=== PATIENT | female | born 1990 | race Caucasian/White ===

== ENCOUNTER 2023-11-30 17:01 | Emergency (ER) | payer OTHER, SELFPAY ==
[2023-11-30 17:04] VITALS: BP 177/81; PULSE 93; RESP 16; TEMP 36.5; O2SAT 100; BMI 29.2
--- NOTE | 2023-11-30 17:22 | DI.CT.S_ITS ---
PROCEDURE: CT CERVICAL SPINE WO CON INDICATIONS: midline cervical pain after fall TECHNIQUE: Noncontrast 3 mm thick sections acquired from the skull base to the T4 level. Sagittal and coronal reformats were then constructed. For radiation dose reduction, the following was used: automated exposure control, adjustment of mA and/or kV according to patient size. COMPARISON: None. FINDINGS: Image quality: This examination is somewhat limited by quantum mottle artifact. Bones: No fractures or dislocations. Visualized superior ribs are intact. Soft tissues: Prevertebral soft tissues are normal in thickness. No paravertebral hematomas. No apical pneumothoraces. IMPRESSION: No displaced fracture or traumatic subluxation. Dictated by: Karan Montgomery M.D. on 11/30/2023 at 16:37 Approved by: Karan Montgomery M.D. on 11/30/2023 at 16:38
--- NOTE | 2023-11-30 18:02 | ED_ITS ---
HPI - Neck Pain/Injury General Chief Complaint: Neck Pain/Injury Stated Complaint: FALL, NECK PAIN Time Seen by Provider: 11/30/23 17:21 Mode of arrival: Ambulatory History of Present Illness HPI Narrative: Patient is a 33-year-old female significant past medical history presenting today with neck pain. She reports that she fell down about 10 flights of stairs 1 week ago. She has since had sharp shooting pain down her right arm she dropped her coffee this morning. She has taken some Tylenol without significant relief she can not have NSAIDs. She has had mild headaches off and on no significant nausea or vomiting. No other symptoms. Related Data Previous Rx's Medication Instructions Recorded gabapentin 300 mg capsule 300 mg PO BEDTIME #30 caps 11/30/23 hydrocodone 5 mg-acetaminophen 325 1 tab PO Q6H PRN pain #10 tabs 11/30/23 mg tablet hydrocodone 5 mg-acetaminophen 325 1 tab PO Q6H PRN pain #10 tabs 11/30/23 mg tablet Allergies Allergy/AdvReac Type Severity Reaction Status Date / Time NSAIDS (Non-Steroidal AdvReac Intermediate Vomiting Verified 11/30/23 17:10 Anti-Inflamma tramadol [TRAMADOL] AdvReac Unknown UPSET Verified 11/30/23 17:10 STOMACH Patient History Social History Smoking Status: Current every day smoker Smoking Status: Current every day smoker Substance Use Type: does not use Exam Initial Vital Signs Initial Vital Signs: Vital Signs Temperature 97.7 F 11/30/23 17:04 Pulse Rate 93 H 11/30/23 17:04 Respiratory Rate 16 11/30/23 17:04 Blood Pressure 177/81 H 11/30/23 17:04 Pulse Oximetry 100 11/30/23 17:04 Oxygen Delivery Method Room Air 11/30/23 17:04 GENERAL: Alert 33-year-old female NECK: Mild vertebral tenderness decreased range of motion tender on the right paraspinal muscle CARDIOVASCULAR: peripheral pulses in tact, cap refill <2 sec RESPIRATORY: No respiratory distress, speaks in full sentences without difficulty EXTREMITIES: Normal range of motion, no clubbing or edema. Neurovascularly intact NEUROLOGICAL: Cranial nerves II through XII grossly intact. Normal gait and speech. SKIN: Warm, dry, no petechiae, no rashes or lesions. Course Orders Ordered: ED Orders 11/30/23 17:22 CT cervical spine wo con Stat Discontinued Medications Hydrocodone Bitart/Acetaminophen (Hydrocodone/Acet 5/325 Prepack) 1 bottle MISC DIRECTED ONE Stop: 11/30/23 18:12 Last Admin: 11/30/23 18:30 Dose: 1 bottle Documented By: GAURANG Gabapentin (Gabapentin 300 Mg Capsule) 300 mg PO NOW ONE Stop: 11/30/23 18:12 Last Admin: 11/30/23 18:30 Dose: 300 mg Documented By: GAURANG Vital Signs Vital signs: Vital Signs - 8 hr 11/30/23 17:04 Temperature 97.7 F Pulse Rate 93 H Respiratory Rate 16 Blood Pressure 177/81 H Pulse Oximetry 100 Oxygen Delivery Method Room Air MDM - Neck Pain/Injury Imaging Data CT - cervical spine: Radiologist's Impression: PROCEDURE: CT CERVICAL SPINE WO CON INDICATIONS: midline cervical pain after fall TECHNIQUE: Noncontrast 3 mm thick sections acquired from the skull base to the T4 level. Sagittal and coronal reformats were then constructed. For radiation dose reduction, the following was used: automated exposure control, adjustment of mA and/or kV according to patient size. COMPARISON: None. FINDINGS: Image quality: This examination is somewhat limited by quantum mottle artifact. Bones: No fractures or dislocations. Visualized superior ribs are intact. Soft tissues: Prevertebral soft tissues are normal in thickness. No paravertebral hematomas. No apical pneumothoraces. IMPRESSION: No displaced fracture or traumatic subluxation. Dictated by: Karan Montgomery M.D. on 11/30/2023 at 16:37 MDM Narrative Medical decision making narrative: Patient 33-year-old female presents today after 1 week of falling down 10 flights of stairs. Having some neck pain with right arm numbness tingling weakness. She is extremely tender right-sided paraspinal muscle. She has not had any relief. Can not take NSAIDs. She is given [place] and gabapentin here in the ED she has a ride home Discharge Plan Departure Patient Disposition: Home Clinical Impression: Cervical radiculopathy Instructions: Peripheral Neuropathy, Neck Sprain Activity Restrictions/Additional Instructions: *You have been diagnosed with neck pain with neuropathy *What to do: At this time increase activity as tolerated recommend heat. He may need an outpatient MRI *Continue to take medications as directed--> [facility] Gabapentin 300 mg at nighttime, this can be adjusted under physician direction and increase [place] 1 tablet every 6 hours if needed for severe pain *Follow up with your primary care provider in 2-3 days or call [phone] *Return to ER if you should have increasing weakness numbness tingling or any new, worsening or concerning symptoms CONTROLLED SUBSTANCE DISCHARGE (Narcotoic/benzodiazepine/Flexeril/Phenergan) 1. You have been prescribed narcotic medications, it does have acetaminophen/Tylenol/paracetamol in it, DO NOT TAKE MORE THAN 4,00mg in 24 hours of Tylenol. TRAMADOL DOES NOT CONTAIN TYLENOL 2. Please understand that we cannot provide further refills of narcotics, benzodiazepines or controlled substances through the ED and her pain management will need to be through your provider. 3. While on these medications you cannot drive or operate heavy machinery. 4. You cannot sign legal documents or perform any duties such as this. 5. As long as you're taking opiate pain medications he should also be taking a stool softener such as Colace, Dulcolax, MiraLAX or prune juice, to help avoid constipation. Prescriptions: New hydrocodone-acetaminophen 5-325 mg tablet 1 tab PO Q6H PRN (Reason: pain) Qty: 10 0RF hydrocodone-acetaminophen 5-325 mg tablet 1 tab PO Q6H PRN (Reason: pain) Qty: 10 0RF gabapentin 300 mg capsule 300 mg PO BEDTIME Qty: 30 0RF Referrals: Miscellaneous,Doctor, [Primary Care Provider] - Stand Alone Forms: Patient Portal/API
[2023-11-30] MEDS: GABAPENTIN 300 MG CAPSULE PO (18:30)
[2023-11-30] MEDS: HYDROCODONE/ACET 5/325 PREPACK 1 BOTTLE MISC (18:30)
== END 2023-11-30 18:35 | disposition home or self-care (01) ==
PROVIDERS: Emergency Provider Emergency Medicine
DX: M54.12 Radiculopathy, cervical region (principal); W10.9XXD Fall (on) (from) unspecified stairs and steps, subsequent encounter
CPT/HCPCS: 72125; 99284

== ENCOUNTER 2024-02-11 20:04 | Emergency (ER) | payer OTHER, MEDICAID, SELFPAY ==
[2024-02-11 20:17] VITALS: BP 135/93; PULSE 85; RESP 20; TEMP 36.4; O2SAT 100; BMI 35.4
--- NOTE | 2024-02-11 21:41 | DI.RAD.S_ITS ---
PROCEDURE: XR LUMBAR SPINE 2-3V INDICATIONS: lower back pain after fall TECHNIQUE: 3 views of the lumbar spine were acquired. COMPARISON: None. FINDINGS: Bones: 5 [id number] vertebrae are present. There is normal bony alignment. No vertebral body compression fractures. No suspicious bony lesions. Mild degenerative disease at L4-L5 and L5-S1. Mild facet arthropathy at L4-L5 and L5-S1. Soft tissues: Overlying bowel gas pattern is normal. No suspicious soft tissue calcifications. Cholecystectomy. IMPRESSION: 1. No lumbar spine fractures. If clinical symptoms persist or clinical suspicion for pathology is high, a repeat examination in 7-10 days, or advanced imaging such as CT or MRI is suggested for further evaluation. 2. Mild degenerative disc disease and moderate facet arthropathy. Dictated by: Lauren Fabian M.D. on 02/11/2024 at 22:59 Approved by: Lauren Fabian M.D. on 02/11/2024 at 23:01
[2024-02-11 22:07] VITALS: BP 155/102; PULSE 76; RESP 14; O2SAT 100
--- NOTE | 2024-02-11 23:17 | ED_ITS ---
HPI - Recheck/Abnormal Lab/Rx General Chief Complaint: Recheck/Abnormal Lab/Rx Stated Complaint: fell down stairs, back & leg pain Time Seen by Provider: 02/11/24 21:41 Source: patient Mode of arrival: Wheelchair History of Present Illness HPI narrative: Patient is a 33-year-old female. Here for evaluation of lower back pain with midline and right being greater than left discomfort and also pain and tingling radiating down her right leg. No fevers. Unsure the exact onset but it seems to be worsening over the past couple days. She states it is difficult for her to stand up and move. She describes the numbness and tingling around her entire right leg. She went to an outside facility in the past and received Robaxin which she states has not been helping. She has a follow-up with a new primary doctor in approximately 1 week now. Denies fevers. Related Data Previous Rx's Medication Instructions Recorded gabapentin 300 mg capsule 300 mg PO BEDTIME #30 caps 11/30/23 hydrocodone 5 mg-acetaminophen 325 1 tab PO Q6H PRN pain #10 tabs 11/30/23 mg tablet hydrocodone 5 mg-acetaminophen 325 1 tab PO Q6H PRN pain #10 tabs 11/30/23 mg tablet hydrocodone 5 mg-acetaminophen 325 1 tab PO Q8H PRN pain #10 tabs 02/11/24 mg tablet methylprednisolone 4 mg tablets in See Rx Instructions PO .COMPLEX 02/11/24 a dose pack (Medrol ([place])) #21 ea Allergies Allergy/AdvReac Type Severity Reaction Status Date / Time NSAIDS (Non-Steroidal AdvReac Intermediate Vomiting Verified 11/30/23 17:10 Anti-Inflamma tramadol [TRAMADOL] AdvReac Unknown UPSET Verified 11/30/23 17:10 STOMACH Review of Systems Review of Systems ROS Unobtainable: All systems reviewed & are unremarkable except as noted in HPI and below Patient History Social History Smoking Status: Current every day smoker Smoking Status: Current every day smoker tobacco type: cigarettes Substance Use Type: does not use Exam Initial Vital Signs Initial Vital Signs: Vital Signs Temperature 97.6 F 02/11/24 20:17 Pulse Rate 85 02/11/24 20:17 Respiratory Rate 20 02/11/24 20:17 Blood Pressure 135/93 H 02/11/24 20:17 Pulse Oximetry 100 02/11/24 20:17 Oxygen Delivery Method Room Air 02/11/24 20:17 Resp Effort & Inspection: normal respiratory effort Cardio Rate: regular rate GI Inspection: normal to inspection and non-distended Back/Spine/Pelvis Thoracic/Lumbar Spine: paraspinal tenderness, No thoracic spinal tenderness and lumbar spinal tenderness Skin General: no rashes or lesions noted Neuro General: patient alert, patient awake, patient oriented x3 and moves all extremities Course Orders Ordered: ED Orders 02/11/24 21:41 XR lumbar spine 2-3V Stat Discontinued Medications Hydrocodone Bitart/Acetaminophen (Hydrocodone/Acet 5/325 Prepack) 1 bottle MISC DIRECTED ONE Stop: 02/11/24 23:19 Last Admin: 02/11/24 23:35 Dose: 1 bottle Documented By: SEAMUS Hydrocodone Bitart/Acetaminophen (Hydrocodone/Acet 10/325 Tablet) 1 tab PO NOW ONE Stop: 02/11/24 23:19 Last Admin: 02/11/24 23:34 Dose: 1 tab Documented By: SEAMUS Vital Signs Vital signs: Vital Signs - 8 hr 02/11/24 20:17 02/11/24 22:07 Temperature 97.6 F Pulse Rate 85 76 Respiratory Rate 20 14 Blood Pressure 135/93 H 155/102 H Pulse Oximetry 100 100 Oxygen Delivery Method Room Air Room Air MDM - Recheck/Abnormal Lab/Rx Medical Records Attestation: I reviewed the patient's medical records. Lab Data Attestation: I reviewed the patient's lab results. Labs: Urine Dip Bedside Urine Glucose Negative Bedside Urine Bilirubin - Negative Bedside Urine Ketone - Negative Urine Specific [place] 1.030 Bedside Urine Occult Blood +/- Bedside Urine pH 6.0 Bedside Urine Protein +/- 15 Bedside Urine Urobilinogen - Negative Bedside Urine Nitrite - Negative Bedside Urine Leukocytes - Negative Esterase Imaging Data Lumbar spine x-ray: Radiologist's Impression: PROCEDURE: XR LUMBAR SPINE 2-3V INDICATIONS: lower back pain after fall TECHNIQUE: 3 views of the lumbar spine were acquired. COMPARISON: None. FINDINGS: Bones: 5 [id number] vertebrae are present. There is normal bony alignment. No vertebral body compression fractures. No suspicious bony lesions. Mild degenerative disease at L4-L5 and L5-S1. Mild facet arthropathy at L4-L5 and L5-S1. Soft tissues: Overlying bowel gas pattern is normal. No suspicious soft tissue calcifications. Cholecystectomy. IMPRESSION: 1. No lumbar spine fractures. If clinical symptoms persist or clinical suspicion for pathology is high, a repeat examination in 7-10 days, or advanced imaging such as CT or MRI is suggested for further evaluation. 2. Mild degenerative disc disease and moderate facet arthropathy. MDM Narrative Medical decision making narrative: X-ray shows no fractures. Urinalysis shows no urinary tract infection. She was not retaining urine. Unsure whether or not the discomfort she is having now is from the fall that she had 3 weeks ago. When she was evaluated in the past it was more of the cervical region and upper extremity discomfort. She states she can not take anti-inflammatories because it causes her to vomit. We will put her on steroids. She is tried muscle relaxers without any improvement. Pain medication for symptom control as well. Will have her contact her primary doctor for a follow-up to discuss further treatment to include either physical therapy or an MRI as an outpatient. Suspicion for fracture, cauda equina, epidural abscess/hematoma. Patient is safe for discharge home. Discharge Plan Departure Patient Disposition: Home Clinical Impression: Lumbar back pain with radiculopathy affecting right lower extremity Instructions: DI for Low Back Pain Activity Restrictions/Additional Instructions: It is important that you try to stay as active as possible. I recommend that you keep your scheduled appointment with your primary doctor on the to discuss further evaluation. Return to the emergency department for new symptoms. Your prescription medications were sent to [facility] in [place] per your request Prescriptions: New hydrocodone-acetaminophen 5-325 mg tablet 1 tab PO Q8H PRN (Reason: pain) Qty: 10 0RF methylprednisolone [Medrol ([place])] 4 mg tablets,dose pack See Rx Instructions .ROUTE .COMPLEX Qty: 21 0RF Rx Instructions: orally per package directions No Action hydrocodone-acetaminophen 5-325 mg tablet 1 tab PO Q6H PRN (Reason: pain) Qty: 10 0RF hydrocodone-acetaminophen 5-325 mg tablet 1 tab PO Q6H PRN (Reason: pain) Qty: 10 0RF gabapentin 300 mg capsule 300 mg PO BEDTIME Qty: 30 0RF Referrals: Miscellaneous,Doctor, MD [Primary Care Provider] - Stand Alone Forms: Patient Portal/API, Work Release Note
[2024-02-11] MEDS: HYDROCODONE/ACET 10/325 TABLET 1 TAB PO (23:34)
[2024-02-11] MEDS: HYDROCODONE/ACET 5/325 PREPACK 1 BOTTLE MISC (23:35)
== END 2024-02-11 23:46 | disposition home or self-care (01) ==
PROVIDERS: Emergency Provider Emergency Medicine
DX: M54.50 Low back pain, unspecified (principal); M54.16 Radiculopathy, lumbar region
CPT/HCPCS: 51798; 72100; 81003; 99283

== ENCOUNTER 2024-09-11 21:21 | Emergency (ER) | payer OTHER, MEDICAID, SELFPAY ==
[2024-09-11 21:29] VITALS: BP 163/96; PULSE 90; RESP 18; TEMP 36.8; O2SAT 98; BMI 36.0
--- NOTE | 2024-09-11 21:33 | DI.RAD.S_ITS ---
PROCEDURE: XR KNEE RT 3V INDICATIONS: pain/popping sound TECHNIQUE: 3 views of the knee were acquired. COMPARISON: None. FINDINGS: Bones: No fractures or dislocations. No patellar subluxation. No suspicious bony lesions. Soft tissues: No joint effusion. No suspicious soft tissue calcifications. IMPRESSION: No acute right knee fracture or dislocation. No significant joint effusion. Dictated by: Joe Vásquez M.D. on 09/11/2024 at 21:57 Approved by: Joe Vásquez M.D. on 09/11/2024 at 21:57
--- NOTE | 2024-09-11 23:06 | ED_ITS ---
HPI - Extremity Injury (Lower) General Chief Complaint: Extremity Injury, Lower Stated Complaint: right knee injury- swollen, cant bend or straightn Time Seen by Provider: 09/11/24 23:06 Source: patient Mode of arrival: Wheelchair History of Present Illness HPI Narrative: Patient is a 34-year-old female no significant past medical history presents for evaluation of right knee pain states that she was going up the stairs when she twisted it has now been having persistent pain to the inner part of her right knee, states that she is having difficulty bending it but no micro motion tenderness no redness. No additional trauma or falls. Related Data Previous Rx's Medication Instructions Recorded gabapentin 300 mg capsule 300 mg PO BEDTIME #30 caps 11/30/23 hydrocodone 5 mg-acetaminophen 325 1 tab PO Q6H PRN pain #10 tabs 11/30/23 mg tablet hydrocodone 5 mg-acetaminophen 325 1 tab PO Q6H PRN pain #10 tabs 11/30/23 mg tablet hydrocodone 5 mg-acetaminophen 325 1 tab PO Q8H PRN pain #10 tabs 02/11/24 mg tablet methylprednisolone 4 mg tablets in See Rx Instructions PO .COMPLEX 02/11/24 a dose pack (Medrol ([place])) #21 ea baclofen 10 mg tablet 10 mg PO BID 7 days #14 tabs 09/11/24 Allergies Allergy/AdvReac Type Severity Reaction Status Date / Time NSAIDS (Non-Steroidal AdvReac Intermediate Vomiting Verified 11/30/23 17:10 Anti-Inflamma tramadol [TRAMADOL] AdvReac Unknown UPSET Verified 11/30/23 17:10 STOMACH steroid Allergy Hives Uncoded 09/11/24 21:29 Review of Systems Review of Systems Narrative: General: Denies fever, chills, weight loss HEENT: Denies headache, eye drainage, eye irritation, head trauma, sore throat, voice change Cardiovascular: Denies any chest pain, palpitations, shortness of breath, tachycardia Respiratory: Denies any shortness of breath, cough, wheeze, stridor GI/: Denies any abdominal pain, nausea, vomiting, diarrhea, bright red blood per rectum, melanotic stools, urinary frequency, urinary retention, dysuria, hematuria MSK: Positive right knee pain Skin: Denies any rashes, lesions, discoloration Neuro: Denies any headache, lightheadedness, dizziness, fainting, weakness Psych: Denies SI/HI Patient History Social History Smoking Status: Current every day smoker Smoking Status: Current every day smoker tobacco type: cigarettes and vaping Substance Use Type: does not use Exam Narrative Exam Narrative: General: Cooperative, comfortable, well-developed, not in acute distress HEENT: Normocephalic, atraumatic, PERRLA, normal sclera, eyelids normal, Neck: Active full range of motion, atraumatic Chest: Normal to inspection, negative crepitus, no overlying erythema ecchymosis Respiratory: Normal respiratory effort, not in acute respiratory distress, clear to auscultation bilaterally negative cough, wheeze, tachypnea, rhonchi, rales Cardiology: Regular rate rhythm negative gallop, murmur, rubs GI/: Normal to inspection, soft, nonrigid, no tenderness to palpation, exam deferred MSK: Neurovascularly intact bilateral lower extremities patient without any micro motion tenderness of the right knee but there is some tenderness to palpation of the medial aspect of the right knee, no erythema no overlying other signs of infection Skin: No rashes lesions noted Neuro: Alert awake oriented x3, moves all 4 extremities spontaneously, cranial nerves intact, able to answer all questions appropriately follows commands appropriately Psych: Cooperative, negative suicidal or homicidal ideations Initial Vital Signs Initial Vital Signs: Vital Signs Temperature 98.3 F 09/11/24 21:29 Pulse Rate 90 09/11/24 21:29 Respiratory Rate 18 09/11/24 21:29 Blood Pressure 163/96 H 09/11/24 21:29 Pulse Oximetry 98 09/11/24 21:29 Oxygen Delivery Method Room Air 09/11/24 21:29 Course Orders Ordered: ED Orders 09/11/24 21:33 XR knee RT 3V Stat Vital Signs Vital signs: Vital Signs - 8 hr 09/11/24 21:29 Temperature 98.3 F Pulse Rate 90 Respiratory Rate 18 Blood Pressure 163/96 H Pulse Oximetry 98 Oxygen Delivery Method Room Air MDM - Extremity Injury (Lower) Differential Diagnosis Differential diagnosis: Likely other (Avulsion fracture, knee sprain) Imaging Data Extremity x-ray #1: Radiologist's Impression: [address] [address] XRay Report Signed Patient: Dang Oates MR#: [id number] : 1990 Acct:[id number] Age/Sex: 34 / F Date of Service: 09/11/24 Loc: ED Accession Number: [id number] Procedure: XR knee RT 3V Ordering Provider: Manny Burgess D.O. PROCEDURE: XR KNEE RT 3V INDICATIONS: pain/popping sound TECHNIQUE: 3 views of the knee were acquired. COMPARISON: None. FINDINGS: Bones: No fractures or dislocations. No patellar subluxation. No suspicious bony lesions. Soft tissues: No joint effusion. No suspicious soft tissue calcifications. IMPRESSION: No acute right knee fracture or dislocation. No significant joint effusion. MDM Narrative Medical decision making narrative: Patient without any past medical history presents with evaluation of right knee pain after twisting it going up the stairs no trauma no falls has had persistent pain to the inner part of her knee, x-ray was negative for any acute fractures, most likely pain secondary to knee strain/sprain, will be placed in a knee immobilizer sent home with muscle relaxers and instructed follow up with primary care and orthopedic surgery in outpatient setting, she understands verbalized understanding of this agrees to being discharged home with outpatient follow up. Discharge Plan Departure Patient Disposition: Home Clinical Impression: Acute knee pain Activity Restrictions/Additional Instructions: Please follow up with primary care and orthopedic surgery Please read the discharge instructions sheet carefully and bring all papers to all doctor follow-up visits, as it may contain information that your doctor may want to see. Disease processes change and evolve, if your symptoms worsen or if you develop any new symptoms that are concerning to you please return for evaluation. Your evaluation today does not show any evidence of any life- threatening/serious illnesses requiring admission to the hospital or surgery. Please follow-up with your doctor for re-evaluation in approximately 1 day. Seek immediate medical attention for any worrisome symptoms. Prescriptions: New baclofen 10 mg tablet 10 mg PO BID 7 Days Qty: 14 0RF No Action hydrocodone-acetaminophen 5-325 mg tablet 1 tab PO Q8H PRN (Reason: pain) Qty: 10 0RF methylprednisolone [Medrol ([place])] 4 mg tablets,dose pack See Rx Instructions .ROUTE .COMPLEX Qty: 21 0RF Rx Instructions: orally per package directions hydrocodone-acetaminophen 5-325 mg tablet 1 tab PO Q6H PRN (Reason: pain) Qty: 10 0RF hydrocodone-acetaminophen 5-325 mg tablet 1 tab PO Q6H PRN (Reason: pain) Qty: 10 0RF gabapentin 300 mg capsule 300 mg PO BEDTIME Qty: 30 0RF Referrals: Oli Connors MD [Physician] - Miscellaneous,DoctorMD [Primary Care Provider] - Stand Alone Forms: Patient Portal/API/Survey
--- NOTE | 2024-09-11 23:36 | ED_ITS ---
HPI - Extremity Injury (Lower) General Chief Complaint: Extremity Injury, Lower Stated Complaint: right knee injury- swollen, cant bend or straightn Time Seen by Provider: 09/11/24 23:06 Source: patient Mode of arrival: Wheelchair Related Data Previous Rx's Medication Instructions Recorded gabapentin 300 mg capsule 300 mg PO BEDTIME #30 caps 11/30/23 hydrocodone 5 mg-acetaminophen 325 1 tab PO Q6H PRN pain #10 tabs 11/30/23 mg tablet hydrocodone 5 mg-acetaminophen 325 1 tab PO Q6H PRN pain #10 tabs 11/30/23 mg tablet hydrocodone 5 mg-acetaminophen 325 1 tab PO Q8H PRN pain #10 tabs 02/11/24 mg tablet methylprednisolone 4 mg tablets in See Rx Instructions PO .COMPLEX 02/11/24 a dose pack (Medrol ([place])) #21 ea baclofen 10 mg tablet 10 mg PO BID 7 days #14 tabs 09/11/24 Allergies Allergy/AdvReac Type Severity Reaction Status Date / Time NSAIDS (Non-Steroidal AdvReac Intermediate Vomiting Verified 11/30/23 17:10 Anti-Inflamma tramadol [TRAMADOL] AdvReac Unknown UPSET Verified 11/30/23 17:10 STOMACH steroid Allergy Hives Uncoded 09/11/24 21:29 Patient History Social History Smoking Status: Current every day smoker Smoking Status: Current every day smoker tobacco type: cigarettes and vaping Substance Use Type: does not use Exam Initial Vital Signs Initial Vital Signs: Vital Signs Temperature 98.3 F 09/11/24 21:29 Pulse Rate 90 09/11/24 21:29 Respiratory Rate 18 09/11/24 21:29 Blood Pressure 163/96 H 09/11/24 21:29 Pulse Oximetry 98 09/11/24 21:29 Oxygen Delivery Method Room Air 09/11/24 21:29 Course Orders Ordered: ED Orders 09/11/24 21:33 XR knee RT 3V Stat Vital Signs Vital signs: Vital Signs - 8 hr 09/11/24 21:29 09/11/24 23:45 Temperature 98.3 F Pulse Rate 90 88 Respiratory Rate 18 18 Blood Pressure 163/96 H 156/68 H Pulse Oximetry 98 100 Oxygen Delivery Method Room Air Discharge Plan Departure Patient Disposition: Home Clinical Impression: Acute knee pain Instructions: DI for Knee Pain Activity Restrictions/Additional Instructions: Please follow up with primary care and orthopedic surgery Please read the discharge instructions sheet carefully and bring all papers to all doctor follow-up visits, as it may contain information that your doctor may want to see. Disease processes change and evolve, if your symptoms worsen or if you develop any new symptoms that are concerning to you please return for evaluation. Your evaluation today does not show any evidence of any life- threatening/serious illnesses requiring admission to the hospital or surgery. Please follow-up with your doctor for re-evaluation in approximately 1 day. Seek immediate medical attention for any worrisome symptoms. Prescriptions: New baclofen 10 mg tablet 10 mg PO BID 7 Days Qty: 14 0RF No Action hydrocodone-acetaminophen 5-325 mg tablet 1 tab PO Q8H PRN (Reason: pain) Qty: 10 0RF methylprednisolone [Medrol ([place])] 4 mg tablets,dose pack See Rx Instructions .ROUTE .COMPLEX Qty: 21 0RF Rx Instructions: orally per package directions hydrocodone-acetaminophen 5-325 mg tablet 1 tab PO Q6H PRN (Reason: pain) Qty: 10 0RF hydrocodone-acetaminophen 5-325 mg tablet 1 tab PO Q6H PRN (Reason: pain) Qty: 10 0RF gabapentin 300 mg capsule 300 mg PO BEDTIME Qty: 30 0RF Referrals: Oli Connors MD [Physician] - Miscellaneous,MD Terence [Primary Care Provider] - Stand Alone Forms: Patient Portal/API/Survey, Work Release Note
[2024-09-11 23:45] VITALS: BP 156/68; PULSE 88; RESP 18; O2SAT 100
== END 2024-09-11 23:50 | disposition home or self-care (01) ==
PROVIDERS: Emergency Provider Student in an Organized Health Care Education/Training Program
DX: M25.561 Pain in right knee (principal); X50.1XXA Overexertion from prolonged static or awkward postures, initial encounter
CPT/HCPCS: 73562; 99283

== ENCOUNTER 2024-10-10 20:10 | Emergency (ER) | payer OTHER, MEDICAID, SELFPAY ==
[2024-10-10 20:21] VITALS: BP 187/103; PULSE 93; RESP 17; TEMP 36.8; O2SAT 100; BMI 35.2
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
[2024-10-10] MEDS: KETOROLAC 30 MG/ML VIAL IM (20:39)
[2024-10-10] MEDS: ONDANSETRON 4 MG ODT SL (20:40)
--- NOTE | 2024-10-10 20:48 | PC.NURSE ---
patient stated that she had an allergy to nsaids because she has GERD and vomits when she takes PO nsaids. Provider aware of this and ordered IM toradol. Patient was informed that this was an nsaid and she stated she was ultimately ok with getting the shot.
[2024-10-10 21:12] VITALS: BP 142/86; PULSE 79; RESP 14; O2SAT 99
== END 2024-10-10 21:13 | disposition home or self-care (01) ==
PROVIDERS: Emergency Provider Emergency Medicine
DX: S09.90XA Unspecified injury of head, initial encounter (principal); S13.4XXA Sprain of ligaments of cervical spine, initial encounter; M54.2 Cervicalgia; R51.9 Headache, unspecified; V40.5XXA Car driver injured in collision with pedestrian or animal in traffic accident, initial encounter
CPT/HCPCS: 96372; 99283; J1885

== ENCOUNTER 2025-05-14 15:19 | Emergency (ER) | payer OTHER, SELFPAY ==
[2025-05-14 15:29] VITALS: BP 158/100; PULSE 94; RESP 17; TEMP 36.6; O2SAT 97; BMI 34.3
--- NOTE | 2025-05-14 17:13 | PC.NURSE ---
Patient reported to registration staff that she would like to leave [facility] and go to another facility. This RN went to ER lobby to speak with patient. Patient standing at registration desk, steady gait noted. Patient continues to wear C-collar that was placed on in triage. Patient reports her pain is not improving and she is struggling to tolerate how she feels. Patient is adamant about leaving at this time. She has a female drivers' cash clerk present with her and state that they are going to go directly to [facility] emergency department or [facility] ER. Patient states she will keep the C-collar on until she is seen by a provider at the next facility. Patient signed [id number] form and states understanding of risks leaving prior to evaluation and having C-spine cleared. Patient ambulatory leaving ER at this time with female heat treat worker.
== END 2025-05-14 17:18 | disposition left against medical advice (07) ==
PROVIDERS: Emergency Provider Emergency Medicine
DX: M54.2 Cervicalgia (principal); Z53.21 Procedure and treatment not carried out due to patient leaving prior to being seen by health care provider
CPT/HCPCS: 99281

== ENCOUNTER → 2025-05-20 07:48 | Outpatient (CLI) | payer OTHER, SELFPAY ==
--- NOTE | 2025-05-20 07:51 | DI.NM.S_ITS ---
PROCEDURE: NM EXERCISE TREADMILL NON NUC COMPARISON: None. INDICATIONS: Shortness of breath, Other chest pain FINDINGS: The patient exercised for 4 minutes and 22 seconds reaching 78% of maximum predicted heart rate. Appropriate BP response to exercise. Double product 23260. 7.0METs, BLANQUITA +53%. No angina, no diagnostic ST changes and no ectopy during exercise or recovery. While the patient had dyspnea with exercise, pulse remained 99% on room air. IMPRESSION: Low risk, normal treadmill only stress test from inducible ischemia standpoint. Severely reduced exercise tolerance (7.0METs, BLANQUITA +53%). While only 78% of maximum predicted heart rate was reached, study was adequate [place] [address]. Dictated by: Bella Vidal MD on 05/20/2025 at 16:47 Approved by: Bella Vidal MD on 05/20/2025 at 16:51
--- NOTE | 2025-05-20 07:51 | DI.ECHO.S_ITS ---
[facility]+ [facility] : : [id number] : : [place] : : [id number] : : Phone: [phone] Echocardiogram Report + + :Name: KAYLIN HUNT Study Date: 05/20/2025 Height: 64 in : :Hospital ReadingLocation: Weight: 195 lb : : Gender: Female BSA: 1.9 m2 : :: 1990 Age: 35 yrs BP: 156/106 mmHg: :Reason For Study: CHEST PAIN : :Ordering Physician: MIHAELA, : :SHARIFA Performed By: Mesfin Lagos : :Referring: SHARIFA CHAIREZ : + + Interpretation Summary Normal biventricular size and systolic function. LVEF is 55 to 60%. Normal diastolic function. Normal atrial sizes. Normal valvular function. No signs of pulmonary hypertension. No pericardial effusion. This is essentially a normal echocardiogram. No previous echo images are available for comparison. Procedure: A two-dimensional transthoracic echocardiogram with color flow and Doppler was performed. The study quality was technically good. There is no prior echocardiogram noted for this patient. The patient was in normal sinus rhythm during the exam. Left Ventricle: The left ventricle is normal in size. There is normal left ventricular wall thickness. There is no ventricular septal defect visualized. The ejection fraction is estimated to be 55-60%. There are no focal wall motion abnormalities. Normal diastolic function. Right Ventricle: The right ventricle is normal in size and function. Atria: The left atrial size is normal. Right atrial size is normal. The interatrial septum is not well visualized. Mitral Valve: The mitral valve leaflets appear mildly thickened. There is no mitral regurgitation noted. Aortic Valve: The aortic valve is trileaflet. The aortic valve opens well. No aortic regurgitation is present. Tricuspid Valve: The tricuspid valve leaflets are thin and pliable. There is trace tricuspid regurgitation. Pulmonic Valve: The pulmonic valve is not well seen, but is grossly normal. There is no pulmonic valvular regurgitation. Great Vessels: The aortic root is normal size. The dimensions of the ascending aorta are normal. The pulmonary artery is normal size. The inferior vena cava was not visualized. Pericardium/ Pleura There is no pericardial effusion. MMode/2D Measurements & Calculations LVIDd: 4.4 cm LVOT diam: 1.9 cm LVIDs: 3.0 cm Ao root diam: 3.0 cm FS: 31.9 % asc Aorta Diam: 2.3 cm EPSS: 0.65 cm IVSd: 0.90 cm LVPWd: 0.98 cm LV marino. diameter/BSA (cm/m^2): 2.3 LV sys. diameter/BSA (cm/m^2): 1.6 LA A2 area: 15.3 cm2 RA long axis: 4.4 cm LA A4 area: 19.6 cm2 RA area: 12.7 cm2 LA length (vol): 5.6 cm RA vol: 30.9 ml LA vol: 45.4 ml RA : 16.0 ml/m2 LA vol index: 23.4 ml/m2 RVD1 (basal): 3.4 cm RVD2 (mid): 2.8 cm TAPSE: 2.4 cm Doppler Measurements & Calculations Ao V2 max: 136.1 cm/sec LVOT Max Bienvenido: 127.9 cm/sec Ao V2 mean: 97.8 cm/sec LV V1 max P.5 mmHg Ao max P.4 mmHg LV V1 VTI: 29.5 cm Ao mean P.3 mmHg WILLAM(I,D): 2.7 cm2 Ao V2 VTI: 30.9 cm WILLAM(V,D): 2.6 cm2 sev ratio: 0.96 WILLAM indexed to BSA (cm^2/m^2): 1.4 MV E max bienvenido: 70.1 cm/sec TR max bienvenido: 236.1 cm/sec MV A max bienvenido: 47.4 cm/sec TR max P.3 mmHg MV E/A: 1.5 PA V2 max: 135.3 cm/sec Med Peak E' Bienvenido: 10.5 cm/sec PA V2 mean: 90.2 cm/sec E/E' med: 6.7 PA mean P.7 mmHg Lat Peak E' Bienvenido: 12.2 cm/sec PA pr(Accel): 46.5 mmHg E/E' lat: 5.7 E/e' average: 6.2 MV dec time: 0.23 sec SV(LVOT): 82.5 ml Reading Physician:10:11 AM
== END ==
LOC: ECHO 07:50
PROVIDERS: Referring Provider Internal Medicine Cardiovascular Disease; Visit Provider Internal Medicine Cardiovascular Disease
DX: R07.89 Other chest pain (principal); R06.02 Shortness of breath
CPT/HCPCS: 93016; 93017; 93306

== ENCOUNTER 2025-10-26 10:18 | Emergency (ER) | payer OTHER, SELFPAY ==
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
[2025-10-26 10:28] VITALS: BP 173/103; PULSE 98; RESP 14; TEMP 37.1; O2SAT 100; BMI 34.3
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
[2025-10-26] MEDS: AMOXICILLIN/CLAV 875/125 MG 1 TAB PO (13:54)
[2025-10-26 14:03] VITALS: BP 166/95; PULSE 73; RESP 16; O2SAT 99
== END 2025-10-26 14:04 | disposition home or self-care (01) ==
PROVIDERS: Emergency Provider Emergency Medicine
DX: K04.7 Periapical abscess without sinus (principal)
CPT/HCPCS: 99283